=== PATIENT | female | born 1935 | race Caucasian/White ===

== ENCOUNTER 2019-11-09 14:36 | Inpatient (IN) | payer MEDICARE, MEDICAID ==
[~2019-11-09] VITALS: Ht 162.6 cm; Wt 63.5 kg
[~2019-11-09 14:36] MED LIST: BISOPROLOL-HCT1 EAC1 PO; CELEXA20 MG PO; COLACE100 MG PO; DESERYL100 MG PO; LISINOPRIL10 MG PO; LOPID600 MG PO; MULTIPLE VITAMI1 TA1 PO; NICODERM C1 PATCH .1 TRANSDERM; OXYBUTYNIN CHLOR5 MG PO; PLAVIX75 MG PO; PRILOSEC20 MG PO
[2019-11-09 15:27] LABS: EOSINOPHILS 5.1 % (0-7); HEMATOCRIT 36.4 % (36.0-48.0); HEMOGLOBIN 11.8 g/dL (12-16); IMMATURE GRANULOCYTES 0.3 % (0-5); LYMPHOCYTES 15.7 % (15-50); MCH 27.8 pg (26.0-34.0); MCHC 32.4 g/dL (31.0-37.0); MCV 85.6 fL (80.0-100.0); MEAN PLATELET VOLUME 9.6 fL (7.4-10.4); MONOCYTES 13.9 % (2-11); PLATELET COUNT 207 10x3/uL (130-400); RBC 4.25 10x6/uL (4.00-5.40); RDW 14.4 % (11.5-14.5)
[2019-11-09 15:41] LABS: CALC OSMOLALITY 272 mosm/kg (275-300); CALCIUM 8.5 mg/dL (8.5-10.1); CARBON DIOXIDE 22.2 mmol/L (21.0-32.0); CHLORIDE - SERUM 101 mmol/L (98-107); CREATININE - SERUM 2.8 mg/dL (0.6-1.3); GLUCOSE 98 mg/dL (74-106); POTASSIUM - SERUM 4.2 mmol/L (3.5-5.1); SODIUM 133 mmol/L (136-145); UREA NITROGEN 33 mg/dL (7-18); eGFR NON AFRICAN AMERICAN 17 mL/min (90-120)
[2019-11-09 15:51] LABS: APTT 27.4 SECONDS (22.8-39.4); PROTIME 13.2 SECONDS (11.6-15.0)
[2019-11-09 16:10] LABS: ALBUMIN 3.4 g/dL (3.4-5.0); ALKALINE PHOSPHATASE 74 U/L (30-120); ALT (SGPT) 23 U/L (10-68); BILIRUBIN - TOTAL 0.39 mg/dL (0.2-1.3); CKMB 1.7 U/L (0.0-3.6); CREATINE KINASE 57 UL (21-215); PROTEIN - SERUM 6.8 g/dL (6.4-8.2); THYROID STIMULATING HORMONE 2.43 uIU/mL (0.36-3.74); TROPONIN-I < 0.017 ng/mL (0.000-0.060)
--- NOTE | 2019-11-09 16:47 | NUR ---
URINE SAMPLE OBTAINED AND SENT TO LAB
[2019-11-09 17:31] VITALS: BP 157/59
[2019-11-09 17:40] LABS: BILIRUBIN NEGATIVE (NEGATIVE); KETONE NEGATIVE (NEGATIVE); NITRITE NEGATIVE (NEGATIVE); UROBILINOGEN NORMAL mg/dL (< 2)
[2019-11-09 17:41] LABS: BACTERIA FEW /HPF (NONE SEEN); EPITHELIAL CELLS 0-5 /hpf (0-5)
[2019-11-09 18:32] VITALS: BP 157/62
[2019-11-10] VITALS (8 sets, daily range): BP systolic 128–161; BP diastolic 44–69; BMI 24.0
[2019-11-10 06:36] LABS: BASOPHILS 1.2 % (0-2); EOSINOPHILS 6.6 % (0-7); HEMATOCRIT 33.7 % (36.0-48.0); HEMOGLOBIN 10.9 g/dL (12-16); IMMATURE GRANULOCYTES 0.2 % (0-5); LYMPHOCYTES 24.9 % (15-50); MCH 27.5 pg (26.0-34.0); MCHC 32.3 g/dL (31.0-37.0); MCV 84.9 fL (80.0-100.0); MEAN PLATELET VOLUME 10.2 fL (7.4-10.4); MONOCYTES 12.2 % (2-11); NEUTROPHILS 54.9 % (40-80); PLATELET COUNT 201 10x3/uL (130-400); RBC 3.97 10x6/uL (4.00-5.40); RDW 14.4 % (11.5-14.5)
[2019-11-10 06:49] LABS: WBC 4.3 10x3/uL (4.8-10.8)
[2019-11-10 06:51] LABS: ALBUMIN 2.8 g/dL (3.4-5.0); ANION GAP 13.1 mmol/L (8-16); BILIRUBIN - TOTAL 0.27 mg/dL (0.2-1.3); CALCIUM 7.6 mg/dL (8.5-10.1); CARBON DIOXIDE 20.4 mmol/L (21.0-32.0); PROTEIN - SERUM 5.9 g/dL (6.4-8.2)
[2019-11-10 07:07] LABS: CREATININE - SERUM 1.9 mg/dL (0.6-1.3); POTASSIUM - SERUM 3.5 mmol/L (3.5-5.1)
--- NOTE | 2019-11-10 07:37 | NUR ---
DR CELAYA IN ROOM SEEING PT. SHIFT REPORT RECIEVED. PT ASSISTED ON AND OFF BED JOHNSON. POSSE ALARM ON. CL IN REACH. WCTM
--- NOTE | 2019-11-10 10:36 | NUR ---
MRA OF BRAIN ORDERED ON PATIENT. IN CHECKING THE NOTES DR CELAYA HAD MRI BRAIN, I CALLED HIS OFFICE AND GOT CLARIFICATION FROM IDALIA HIS NURSE. SHE INFORMED ME THAT HE WANTED A MRI BRAIN NOT A MRA. MRA WAS CANCELLED AND A MRI BRAIN WITHOUT WAS ORDERED.
--- NOTE | 2019-11-10 12:33 | NUR ---
PT BACK FROM MRI. CL IN REACH. NO FURTHER NEEDS AT THIS TIME. POSSE ALARM ON. WCTM
--- NOTE | 2019-11-10 15:15 | NUR ---
PT EASILY AWAKENED. NO NEEDS AT THIS TIME. MEDS GIVEN PER EMAR. CL IN REACH. BED ALARM ON. WCTM
--- NOTE | 2019-11-11 02:38 | NUR ---
RESTING IN BED WITH NO NEEDS AT THIS TIME. ALERT WITH SOME CONFUSION NOTED, IV TO LEFT HAND INTACT AND PATEN WITH NS PER ORDERS. LEFT HAND WEEK TELEMETRY IN PLACE BED ALARM IN PLACE AMD WORKING. CALL LIGHT AND WATER IN REACH. NO S/S OF DISTRESS NO NEEDS AT THIS TIME.
[2019-11-11 04:00] VITALS: BP 151/54
[2019-11-11 06:22] LABS: ANION GAP 14.3 mmol/L (8-16); CALCIUM 8.3 mg/dL (8.5-10.1); CARBON DIOXIDE 20.6 mmol/L (21.0-32.0); CREATININE - SERUM 1.7 mg/dL (0.6-1.3); POTASSIUM - SERUM 3.9 mmol/L (3.5-5.1)
[2019-11-11 08:51] VITALS: BP 180/57
[2019-11-11 11:59] VITALS: BP 135/56
[2019-11-11 12:46] VITALS: Ht 162.6 cm; Wt 63.5 kg
--- NOTE | 2019-11-11 15:24 | NUR ---
SPOKE TO PT DAUGHTER IN REGARDS TO PT PLAN OF CARE, DAUGHTER SATED SHE WOULD LIKE TO SPEAK WITH DOCTOR CELAYA IN [facility] TO MRI AND XRAY, DID NOT SEE DR CELAYA THIS AFTERNOON ,CALLED OFFICE AND ASKED DR CELAYA TO CALL PATIENT DAUGHTER. NO OTHER NEEDS AT THIS TIME. CONTINUE WITH PLAN OF CARE
[2019-11-11 16:23] VITALS: BP 158/53
[2019-11-11 20:00] VITALS: BP 150/42
[2019-11-12] VITALS: BP 187/82
--- NOTE | 2019-11-12 03:30 | NUR ---
ASSESSED AT THE BEGINNING OF THE SHIFT. PT IS ORIENTED AND ABLE TO VERBALIZE NEEDS. WE ARE ASSISTING HER UP TO THE BATHROOM TO VOID WITH ONE PERSON AND SHE DOES WELL. HER TELEMETRY SHOW SB IN THE HIGH 50'S. THERE WAS NO TROUBLE SWALLOWING HER MEDS AT HS. SHE ONLY HAS ROOM AIR AND IS DOING WELL WITH IT.
[2019-11-12 06:18] LABS: ANION GAP 18.4 mmol/L (8-16); CALCIUM 9.4 mg/dL (8.5-10.1); CARBON DIOXIDE 20.6 mmol/L (21.0-32.0); CREATININE - SERUM 1.5 mg/dL (0.6-1.3)
--- NOTE | 2019-11-12 07:15 | NUR ---
RECEIVED BEDSIDE REPORT. PT LAYING IN BED, DISORITATED TO PLACE, TIME AND SITUATION. DENIES PAIN. PIV IN RIGHT FOREARM, PATENT AND INFUSING, NO REDNESS OR SWELLING. TELEMETRY IN PLACE, 62 SR. BRUISES ON BILAT UPPER ARMS. PT ABLE TO AMBULATE WITH ONE PERSON ASSIST. EDUCATED PT ON CL AND NEEDS, VERBALIZED UNDERSTANDING. BED LOW, CL IN REACH. WILL CONTINUE TO MONITOR.
--- NOTE | 2019-11-12 09:45 | NUR ---
ASSISTED PT WITH SHOWER. FULL LINEN CHANGE. PT TOLERATED WELL. BED LOW, CL IN REACH.
[2019-11-12 12:39] VITALS: BP 163/68
--- NOTE | 2019-11-12 12:45 | NUR ---
ASSISTED PT TO BR, FULL LINEN AND GOWN CHANGE. APPLIED VOLTAREN GEL TO R KNEE. PT TOLERATED WELL, BED LOW, CL IN REACH.
--- NOTE | 2019-11-12 12:58 | NUR ---
OT ACUTE EVALUATION: UPON EVALUATION, PT WAS VERY LETHARGIC.. DIFFICULT TO AROUSE. PT CONFUSED AND ORIENTED TO SELF AND PLACE ONLY. AFTER ASSISTING PT TO EOB WITH MIN ASSIST, SHE BECAME SLIGHTLY MORE ALERT. REQUIRED SEVERAL CUES TO OPEN HER EYES. PT ABLE TO MOVE ALL EXTREMETIES WITH MILD WEAKNESS IN L HAND. PT ABLE TO AMB IN ROOM AND INTO HALLWAY WITH GAIT BELT, MIN ASSIST FOR BALANCE, AND USE OF IV POLE FOR UE SUPPORT. PT ABLE TO AMB APPROX 80 FT WITHOUT REST BREAKS. NO SOB NOTED BUT VERY FATIGUED UPON RETURN TO ROOM. PT ABLE TO PERFORM SIMPLE GROOMING TASKS WITH SET UP; MIN ASSIST FOR TOILETING; MIN ASSIST WITH VERBAL CUES FOR DRESSING. INTERMITTENT SLURRED SPEECH DURING THERAPY, HOWEVER, MAY BE RELATED TO SEVERE LETHARGY. UPON ASSISTING PT BACK TO BED, SHE WENT TO SLEEP IMMEDIATELY. PT REPORTED THAT SHE LIVED WITH DTRS, HOWEVER, UNSURE OF ACCURACY OF THIS INFO. PT UNABLE TO TELL THERAPIST IF SHE REUQIRED 02 OR ADAPT DEVICE AT HOME, HOWEVER, IM ASSUMING THAT SHE WAS INDEP WITH AMBULATION, SHE WAS ABLE TO AMB WITH PROJECT MANAGEMENT ENGINEER OR USE OF IV POLE FOR ASSIST. RECOMMEND IP REHAB PRIOR TO DC HOME THANK YOU FOR REFERAL, JOHNNA REAGAN, OTR/L [id number]
--- NOTE | 2019-11-12 13:15 | NUR ---
ASSISTED PT TO CHAIR, ASSISTED WITH LUNCH TRAY. CHANGED GOWN POST MEAL. ASSISTED PT BACK TO BED. BED LOW, ALARM ON. WILL CONTINUE TO MONITOR.
[2019-11-12 16:53] VITALS: BP 160/64
--- NOTE | 2019-11-12 17:30 | NUR ---
OT NOTE: PT REQUIRED MIN A WITH BED MOBILITY TASKS. PT REQUIRED SET UP WITH FACE AND HAND HYGIENE. [id number] THANK YOU,BRIDGER MORGAN
[2019-11-12 20:00] VITALS: BP 140/86
[2019-11-13 04:00] VITALS: BP 130/82
--- NOTE | 2019-11-13 07:15 | NUR ---
RECEIVED BEDSIDE REPORT. PT LAYING IN BED, EVEN RESPIRATIONS, EYES CLOSED. PIV IN R FOREARM, PATENT AND INFUSING, NO REDNESS OR SWELLING. BED LOW, RAILS X2. CL IN REACH, WILL CONTINUE TO MONITOR.
[2019-11-13 07:44] VITALS: BP 133/70
--- NOTE | 2019-11-13 09:00 | NUR ---
ASSISTED PT WITH BREAKFAST TRAY. GAVE MEDS WITH APPLESAUCE. PT ABLE TO AMBULATE TO BR WITH ONE PERSON ASSIST. PT WEARING DEPENDS. BED LOW, RAILS X2. CL IN REACH.
--- NOTE | 2019-11-13 11:30 | NUR ---
ASSISTED PT TO BR, CHANGED GOWN AND FULL BED CHANGE. PT TOLERATED WELL. ASSISTED PT TO CHAIR FOR LUNCH. CHAIR ALARM ON. CL IN REACH, WILL CONTINUE TO MONITOR.
[2019-11-13 11:43] VITALS: BP 141/90
--- NOTE | 2019-11-13 12:30 | NUR ---
DAUGHTER AT BEDSIDE, ASSISTED PT WITH MEAL. DAUGHTER ASKED ABOUT PENDING PLACEMENT TO RAO URIAS, EDUCATED PT THAT CM WOULD BE ABLE TO ANSWER QUESTIONS ON FRIDAY ABOUT D/C AND PLACEMENT, VERBALIZED UNDERSTANDING. PT SITTING IN CHAIR, ALARM ON. CL IN REACH.
--- NOTE | 2019-11-13 14:00 | NUR ---
D/C FLUIDS PER ORDER. PIV IN RIGHT FOREARM, S/L AND PATENT. BED LOW, CL IN REACH.
[2019-11-13 15:56] VITALS: BP 130/80
--- NOTE | 2019-11-13 18:10 | NUR ---
DECK LID FITTER ASSISTED PT WITH DINNER TRAY, PT ATE 75%, TOLERATED WELL. BED LOW, RAILS X2. CL IN REACH.
--- NOTE | 2019-11-13 20:20 | NUR ---
LYING IN BED WATCHING TV. ALERT AND ORIENTED X3, CONFUSED TO SITUATION. RESP EVEN AND NONLABORED. TELEMETRY SHOWS SR WITH RATE OF 69. SALINE LOCK NOTED TO RT FOREARM. DENIES PAIN. SR ELEVATED X2. CL IN REACH. TANYA ALARM ON FOR PT SAFETY.
[2019-11-13 20:32] VITALS: BP 172/66
--- NOTE | 2019-11-14 00:10 | NUR ---
SPECIAL INSPECTOR REPORTS PT UNCOOPERATIVE DURING ATTEMPT TO GET V/S AND REFUSED.
--- NOTE | 2019-11-14 01:37 | NUR ---
RESTING ON LT SIDE IN BED WITH EYES CLOSED. RESP EVEN AND NONLABORED. NO DISTRESS. SR ELEVATED X2. CL IN REACH. TANYA ON
--- NOTE | 2019-11-14 04:24 | NUR ---
CHECKED FOR INCONTINENCE. ADULT BRIEF IS CLEAN AND DRY. NO DISTRESS. CL IN REACH. TANYA ON.
[2019-11-14 05:57] VITALS: BP 159/69
--- NOTE | 2019-11-14 07:15 | NUR ---
RESTING IN BED WITH EYES CLOSED, BREATHING EVEN AND NONLABORED WITH NO S/S OF DISTRESS. IV LOCATED TO RIGHT FOREARM CURRENTLY SL. WILL CONT TO MONITOR.
[2019-11-14 08:16] VITALS: BP 172/84
--- NOTE | 2019-11-14 12:20 | NUR ---
PTS BP 186/88, CALLED TO ASK ABOUT PRN BP MEDS, WAS INSTRUCTED TO UP LISINOPRIL TO 20MG PO PER DAY AND ADD 0.1MG CLONIDINE PRN Q6 FOR SYSTOLIC >160. WILL CONT TO MONITOR.
[2019-11-14 12:23] VITALS: BP 186/88
[2019-11-14 16:40] VITALS: BP 153/81
--- NOTE | 2019-11-14 19:40 | NUR ---
SITTING UP IN CHAIR. ASSISTED BACK TO BED. GAIT SLIGHTLY UNSTEADY. ALERT AND ORIENTED TO SELF, PLACE AND TIME. CONFUSED TO SITUATION. SCDS OFF. INCONT OF B/B AT TIMES. ADULT BRIEF IN USE. RESP EVEN AND NONLABORED. SALINE LOCK NOTED TO RT FOREARM. TELEMETRY SHOWS SR WITH RATE OF 79. SR ELEVATED X2. CL IN REACH. TANYA ALARM ON FOR PT SAFETY.
[2019-11-14 21:16] VITALS: BP 154/65
--- NOTE | 2019-11-14 22:00 | NUR ---
GOT OOB WITHOUT ASSISTANCE CAUSING TANYA ALARM TO ACTIVATE. WAS INCONT OF BOWELS IN ADULT BRIEF. PERICARE PERFORMED AND NEW BRIEF APPLIED. ASSISTED BACK TO BED. CL IN REACH. TANYA ALARM ON.
--- NOTE | 2019-11-15 01:00 | NUR ---
HAS RESTED WELL SO FAR THIS SHIFT. NO DISTRESS. LYING ON LT SIDE IN BED WITH EYES CLOSED. RESP NONLABORED. SR ELEVATED X2. CL IN REACH. TANYA ALARM ON.
[2019-11-15 01:27] VITALS: BP 158/66
[2019-11-15 05:44] VITALS: BP 135/62
[2019-11-15 07:46] VITALS: BP 148/68
[2019-11-15 08:11] LABS: ANION GAP 10.3 mmol/L (8-16); CARBON DIOXIDE 24.5 mmol/L (21.0-32.0); CREATININE - SERUM 1.1 mg/dL (0.6-1.3); POTASSIUM - SERUM 3.8 mmol/L (3.5-5.1)
--- NOTE | 2019-11-15 09:26 | MORECARE ---
CASE MANAGEMENT DISCHARGE SUMMARY PATIENT: MANNIE MILTON UNIT: [id number] ADM DATE: 11/10/19 AGE: 84 : 35 SEX: F ROOM/BED: D.2230 AUTHOR: TED BRUNER PHYSICIAN: REFERRING PHYSICIAN: MYRA CELAYA MD DATE OF SERVICE: 11/15/19 Discharge Plan Patient Name: MANNIE MILTON [facility] [facility] 1935 Planned Disposition: Anticipated Discharge Date: Discharge Date: Expected LOS: Initial Reviewer: [id number] Initial Review Date: 11/15/2019 Generated: 11/15/19 10:25 am Comments DCP- Discharge Planning Updated by [email or web address]: Graciela Caldera on 11/15/19 8:[address] Patient Name: MANNIE MILTON Admission Status: ER Accout number: [id number] Admission Date: 11-10-2019 : 1935 Admission Diagnosis:WEAKNESS Attending: MYRA CELAYA Current LOS: 5 Anticipated DC Date: Planned Disposition: Primary Insurance: [facility] [employer] Discharge Planning Comments: FAXED UPDATED CLINICALS TO [facility], THEY ARE SUBMITTING FOR AUTH TODAY. WAITING CALL BACK. SUSAN AND IMM SIGNED. Profiler Operator: Graciela Caldera DCP- Discharge Planning Updated by [id number]: Graciela Caldera on 11/12/19 9:[address] Patient Name: MANNIE MILTON Admission Status: ER Accout number: [id number] Admission Date: 11-10-2019 : 1935 Admission Diagnosis:WEAKNESS Attending: MYRA CELAYA Current LOS: 2 Anticipated DC Date: Planned Disposition: Primary Insurance: [facility] [employer] SOLUT[employer] Discharge Planning Comments: FAXED REFERRAL TO [facility]. I WILL FAX OT EVAL WHEN DONE. CM TO FOLLOW AND ASSIST NEEDED. Profiler Operator: Graciela Caldera DCPIA - Discharge Planning Initial Assessment Updated by [email or web address]: Graciela Caldera on 11/15/19 9:09 am * Is the patient Alert and Oriented? Yes * Other Environment STATES LIVES AT A [facility] , CAN'T THINK OF NAME. * ADLs Independent * Other Equipment CANE , WALKER * Additional services required to return to the preadmission environment? Yes * Can the patient safely return to the preadmission environment? Yes * Has this patient been hospitalized within the prior 30 days at any hospital? No External Providers External Provider: [facility] Contact Date: Service Request Date: Service Type: Resolution: Reviewer: Comments: Coverage Notice Reviewer: [id number] Caldera Notice Issued Date-Time: 11/15/2019 9:06 Notice Type: IM Discharge Notice Notice Delivered To: Patient Relationship to Patient: Software Support Specialist Name: Delivery Method: HAND - Hand Delivered Saira Days: Prior Verbal Notification: Recipient Understood Notice: Yes Recipient Signature: Yes Med Rec Note Co-signed by Attending: Coverage Notice Comment: Reviewer: [id number] Beckie Caldera Notice Issued Date-Time: 11/15/2019 9:06 Notice Type: Patient Choice Letter Notice Delivered To: Patient Relationship to Patient: Software Support Specialist Name: Delivery Method: HAND - Hand Delivered Saira Days: Prior Verbal Notification: Recipient Understood Notice: Yes Recipient Signature: Yes Med Rec Note Co-signed by Attending: Coverage Notice Comment: [facility] Patient Name: MANNIE MILTON Page [phone] at 0926 All edits/amendments must be made on the electronic document DICTATION DATE: 11/15/19924 BUTCHER FISH: CLEMENCIA 11/15/19924 RPT#: [id number] DC DATE: STATUS: ADM IN [facility] [address] [place] [address] END OF REPORT
[2019-11-15 12:03] VITALS: BP 165/73
--- NOTE | 2019-11-15 16:25 | MORECARE ---
CASE MANAGEMENT DISCHARGE SUMMARY PATIENT: MANNIE MILTON UNIT: [id number] ADM DATE: 11/10/19 AGE: 84 : 35 SEX: F ROOM/BED: D.2230 AUTHOR: TED BRUNER PHYSICIAN: REFERRING PHYSICIAN: MYRA CELAYA MD DATE OF SERVICE: 11/15/19 Discharge Plan Patient Name: MANNIE MILTON [facility] [facility] 1935 Planned Disposition: Anticipated Discharge Date: Discharge Date: Expected LOS: Initial Reviewer: [id number] Initial Review Date: 11/15/2019 Generated: 11/15/19 5:25 pm Comments DCP- Discharge Planning Updated by [email or web address]: Graciela Caldera on 11/15/19 3:[address] Patient Name: MANNIE MILTON Admission Status: ER Accout number: [id number] Admission Date: 11-10-2019 : 1935 Admission Diagnosis:WEAKNESS Attending: MYRA CELAYA Current LOS: 5 Anticipated DC Date: Planned Disposition: Primary Insurance: [facility] MED[facility] SOLUTIONS Discharge Planning Comments: FAXED UPDATED CLINICALS TO [facility], THEY ARE SUBMITTING FOR AUTH TODAY. WAITING CALL BACK. SUSAN AND IMM SIGNED. Nursing Surgical Services Director: Graciela Caldera Appended by Graciela Caldera on 11/15/2019 16:23 CDT: TRIED CALLING DAUGHTER TWICE, RECEIVED VOICEMAIL, LEFT A MESSAGE. DCP- Discharge Planning Updated by [id number]: Graciela Caldera on 11/12/19 9:[address] Patient Name: MANNIE MILTON Admission Status: ER Accout number: [id number] Admission Date: 11-10-2019 : 1935 Admission Diagnosis:WEAKNESS Attending: MYRA CELAYA Current LOS: 2 Anticipated DC Date: Planned Disposition: Primary Insurance: [facility] MEDIC[facility] SOLUTIONS Discharge Planning Comments: FAXED REFERRAL TO [facility]. I WILL FAX OT EVAL WHEN DONE. CM TO FOLLOW AND ASSIST NEEDED. Nursing Surgical Services Director: Graciela Caldera DCPIA - Discharge Planning Initial Assessment Updated by [id number]: Graciela Caldera on 11/15/19 9:09 am * Is the patient Alert and Oriented? Yes * Other Environment STATES LIVES AT A RESIDENTIAL , CAN'T THINK OF NAME. * ADLs Independent * Other Equipment CANE , WALKER * Additional services required to return to the preadmission environment? Yes * Can the patient safely return to the preadmission environment? Yes * Has this patient been hospitalized within the prior 30 days at any hospital? No Coverage Notice Reviewer: [email or web address] Beckie Caldera Notice Issued Date-Time: 11/15/2019 9:06 Notice Type: IM Discharge Notice Notice Delivered To: Patient Relationship to Patient: Chronometer Repairer Name: Delivery Method: HAND - Hand Delivered Saira Days: Prior Verbal Notification: Recipient Understood Notice: Yes Recipient Signature: Yes Med Rec Note Co-signed by Attending: Coverage Notice Comment: Reviewer: [id number] Beckie Caldera Notice Issued Date-Time: 11/15/2019 9:06 Notice Type: Patient Choice Letter Notice Delivered To: Patient Relationship to Patient: Chronometer Repairer Name: Delivery Method: HAND - Hand Delivered Saira Days: Prior Verbal Notification: Recipient Understood Notice: Yes Recipient Signature: Yes Med Rec Note Co-signed by Attending: Coverage Notice Comment: [facility] Last DP export: 11/15/19 8:26 a Patient Name: MANNIE MILTON Page [phone] at 1625 All edits/amendments must be made on the electronic document DICTATION DATE: 11/15/191624 FOOTWEAR MACHINERY INSTRUCTOR: CLEMENCIA 11/15/191624 RPT#: [id number] DC DATE: STATUS: ADM IN [facility] [address] [place] [address] END OF REPORT
[2019-11-15 16:41] VITALS: BP 149/66
--- NOTE | 2019-11-15 18:45 | NUR ---
PATIENT IN BED WITH IV INTACT. NO COMPLAINTS OR SIGNS OF DISTRESS. VS HAVE BEEN STABLE SINCE CAME BACK FROM SURGERY. PATIENT RESTING WITH NO PROBLEMS. BSCDS ON AND WORKING. CALL LIGHT WITHINR EACH.
--- NOTE | 2019-11-15 19:37 | NUR ---
Alert and orented able to voice needs and wants to staff. up with assist x 1 staff. posie alarm in place and on. iv to right forearm. scd's in place. no needs at this time.
[2019-11-15 20:00] VITALS: BP 165/76
[2019-11-16] VITALS: BP 133/70
[2019-11-16 04:00] VITALS: BP 147/64
--- NOTE | 2019-11-16 07:51 | NUR ---
PATIENT ASLEEP IN BED. AWAKENS TO VOICE. DENIES NEEDS AT THIS TIME. BED LOW POSITION, CALL LIGHT IN REACH. WILL CONTINUE TO MONITOR.
[2019-11-16 08:56] VITALS: BP 171/73
[2019-11-16 12:20] VITALS: BP 142/79
--- NOTE | 2019-11-16 15:52 | MORECARE ---
CASE MANAGEMENT DISCHARGE SUMMARY PATIENT: MANNIE MILTON UNIT: [id number] ADM DATE: 11/10/19 AGE: 84 : 35 SEX: F ROOM/BED: D.2230 AUTHOR: TED BRUNER PHYSICIAN: REFERRING PHYSICIAN: MYRA CELAYA MD DATE OF SERVICE: 11/16/19 Discharge Plan Patient Name: MANNIE MILTON [facility] [facility] 1935 Planned Disposition: Anticipated Discharge Date: Discharge Date: Expected LOS: Initial Reviewer: [id number] Initial Review Date: 11/15/2019 Generated: 11/16/19 4:51 pm Comments DCP- Discharge Planning Updated by [email or web address]: Graciela Caldera on 11/16/19 2:[address] Patient Name: MANNIE MITLON Admission Status: ER Accout number: [id number] Admission Date: 11-10-2019 : 1935 Admission Diagnosis:WEAKNESS Attending: MYRA CELAYA Current LOS: 6 Anticipated DC Date: Planned Disposition: Primary Insurance: [facility] [employer] Discharge Planning Comments: RECEIVED CALL FROM ANNITA AT [facility] AND INSURANCE HAS DENIED [facility]. I WILL CONTACT DAUGHTER TO SEE WHAT THEY WOULD LIKE TO DO. Yard Jockey: Graciela Caldera DCP- Discharge Planning Updated by [id number]: Graciela Caldera on 11/15/19 3:[address] Patient Name: MANNIE MILTON Admission Status: ER Accout number: [id number] Admission Date: 11-10-2019 : 1935 Admission Diagnosis:WEAKNESS Attending: MYRA CELAYA Current LOS: 5 Anticipated DC Date: Planned Disposition: Primary Insurance: [facility] [employer] Discharge Planning Comments: FAXED UPDATED CLINICALS TO [facility], THEY ARE SUBMITTING FOR AUTH TODAY. WAITING CALL BACK. SUSAN AND IMM SIGNED. Yard Jockey: Graciela Caldera Appended by Graciela Caldera on 11/15/2019 16:23 CDT: TRIED CALLING DAUGHTER TWICE, RECEIVED VOICEMAIL, LEFT A MESSAGE. DCP- Discharge Planning Updated by [id number]: Graciela Caldera on 11/12/19 9:[address] Patient Name: MANNIE MILTON Admission Status: ER Accout number: [id number] Admission Date: 11-10-2019 : 1935 Admission Diagnosis:WEAKNESS Attending: MYRA CELAYA Current LOS: 2 Anticipated DC Date: Planned Disposition: Primary Insurance: [facility] [employer] Discharge Planning Comments: FAXED REFERRAL TO [facility]. I WILL FAX OT EVAL WHEN DONE. CM TO FOLLOW AND ASSIST NEEDED. Yard Jockey: Graciela Caldera DCPIA - Discharge Planning Initial Assessment Updated by [email or web address]: Graciela Caldera on 11/15/19 9:09 am * Is the patient Alert and Oriented? Yes * Other Environment STATES LIVES AT A [place] , CAN'T THINK OF NAME. * ADLs Independent * Other Equipment CANE , WALKER * Additional services required to return to the preadmission environment? Yes * Can the patient safely return to the preadmission environment? Yes * Has this patient been hospitalized within the prior 30 days at any hospital? No Coverage Notice Reviewer: [id number] Beckie Caldera Notice Issued Date-Time: 11/15/2019 9:06 Notice Type: IM Discharge Notice Notice Delivered To: Patient Relationship to Patient: Jacquard Card Cutter Name: Delivery Method: HAND - Hand Delivered Saira Days: Prior Verbal Notification: Recipient Understood Notice: Yes Recipient Signature: Yes Med Rec Note Co-signed by Attending: Coverage Notice Comment: Reviewer: [id number] Beckie Caldera Notice Issued Date-Time: 11/15/2019 9:06 Notice Type: Patient Choice Letter Notice Delivered To: Patient Relationship to Patient: Jacquard Card Cutter Name: Delivery Method: HAND - Hand Delivered Saira Days: Prior Verbal Notification: Recipient Understood Notice: Yes Recipient Signature: Yes Med Rec Note Co-signed by Attending: Coverage Notice Comment: [facility] Last DP export: 11/15/19 3:25 p Patient Name: MANNIE MILTON Page [phone] at 1552 All edits/amendments must be made on the electronic document DICTATION DATE: 11/16/19 155 SUPERVISOR NUTRITIONAL YEAST: CLEMENCIA 11/16/19 155 RPT#: [id number] DC DATE: STATUS: ADM IN [facility] [address] [place] [address] END OF REPORT
[2019-11-16 18:08] VITALS: BP 134/64
--- NOTE | 2019-11-16 19:50 | NUR ---
ALERT WITH CONFUSION NOTED AT TIMES. ABLE TO VOICE NEEDS AND WANTS TO STAFF. IV IN PLACE AND PATEN TO RIGHT FOREARM. ON ROOM AIR SCD' IN ROOM REFUSED AT THIS TIME, STATED SHE WANTED TO LEAVE THEM OFF FOR NOW. CALL LIGHT AND WATER IN REACH. NO NEEDS OR S/S OD DISTRESS NOTED.
[2019-11-16 20:00] VITALS: BP 150/66
[2019-11-17] VITALS: BP 129/72
[2019-11-17 04:00] VITALS: BP 123/60
--- NOTE | 2019-11-17 08:50 | NUR ---
ASSESSMENT PER FLOW SHEET. PATIENT IS WITHOUT DISTRESS. FALL PREVENTION IN PLACE WITH BED ALARM
[2019-11-17 09:26] VITALS: BP 145/90
--- NOTE | 2019-11-17 14:00 | MORECARE ---
CASE MANAGEMENT DISCHARGE SUMMARY PATIENT: MANNIE MILTON UNIT: [id number] ADM DATE: 11/10/19 AGE: 84 : 35 SEX: F ROOM/BED: D.2230 AUTHOR: TED BRUNER PHYSICIAN: REFERRING PHYSICIAN: MYRA CELAYA MD DATE OF SERVICE: 11/17/19 Discharge Plan Patient Name: MANNIE MILTON [facility] [facility] 1935 Planned Disposition: Anticipated Discharge Date: Discharge Date: Expected LOS: Initial Reviewer: [id number] Initial Review Date: 11/15/2019 Generated: 11/17/19 3:00 pm Comments DCP- Discharge Planning Updated by [id number]: Graciela Caldera on 11/17/19 12:[address] Patient Name: MANNIE MILTON Admission Status: ER Accout number: [id number] Admission Date: 11-10-2019 : 1935 Admission Diagnosis:WEAKNESS Attending: MYRA CELAYA Current LOS: 7 Anticipated DC Date: Planned Disposition: Primary Insurance: [facility] MEDICARE SOLUTIONS Discharge Planning Comments: I SPOKE WITH GRACIELA MILTON, THE PATIENT'S DAUGHTER ON THE PHONE TODAY. I INFORMED HER OF THE DENIAL FOR IPR. WE DISCUSSED SNF REHABS, SHE IS THINKING IT OVER. SHE SAID MOST LIKELY IF DISCHARGE IS TOMORROW SHE HAS A RESIDENTIAL HOME SHE IS GOING TO TAKE HER TO. WAITING CALL BACK NOW WITH FINAL DECISION FROM THE DAUGHTER. Hot Stick Man: Graciela Caldera DCP- Discharge Planning Updated by [id number]: Graciela Caldera on 11/16/19 2:[address] Patient Name: MANNIE MILTON Admission Status: ER Accout number: [id number] Admission Date: 11-10-2019 : 1935 Admission Diagnosis:WEAKNESS Attending: MYRA CELAYA Current LOS: 6 Anticipated DC Date: Planned Disposition: Primary Insurance: [facility] MEDICARE SOLUTIONS Discharge Planning Comments: RECEIVED CALL FROM ANNITA AT [facility] AND INSURANCE HAS DENIED IPR. I WILL CONTACT DAUGHTER TO SEE WHAT THEY WOULD LIKE TO DO. Hot Stick Man: Graciela Caldera DCP- Discharge Planning Updated by [id number]: Graciela Caldera on 11/15/19 3:[address] Patient Name: MANNIE MILTON Admission Status: ER Accout number: [id number] Admission Date: 11-10-2019 : 1935 Admission Diagnosis:WEAKNESS Attending: MYRA CELAYA Current LOS: 5 Anticipated DC Date: Planned Disposition: Primary Insurance: [facility] MEDICARE SOLUTIONS Discharge Planning Comments: FAXED UPDATED CLINICALS TO [facility], THEY ARE SUBMITTING FOR AUTH TODAY. WAITING CALL BACK. SUSAN AND IMM SIGNED. Hot Stick Man: Graciela Caldera Appended by Graciela Caldera on 11/15/2019 16:23 CDT: TRIED CALLING DAUGHTER TWICE, RECEIVED VOICEMAIL, LEFT A MESSAGE. DCP- Discharge Planning Updated by [id number]: Graciela Caldera on 11/12/19 9:[address] Patient Name: MANNIE MILTON Admission Status: ER Accout number: [id number] Admission Date: 11-10-2019 : 1935 Admission Diagnosis:WEAKNESS Attending: MYRA CELAYA Current LOS: 2 Anticipated DC Date: Planned Disposition: Primary Insurance: [facility] MEDICARE SOLUTIONS Discharge Planning Comments: FAXED REFERRAL TO [facility]. I WILL FAX OT EVAL WHEN DONE. CM TO FOLLOW AND ASSIST NEEDED. Hot Stick Man: Graciela Caldera DCPIA - Discharge Planning Initial Assessment Updated by [id number]: Graciela Caldera on 11/15/19 9:09 am * Is the patient Alert and Oriented? Yes * Other Environment STATES LIVES AT A PRISON , CAN'T THINK OF NAME. * ADLs Independent * Other Equipment CANE , WALKER * Additional services required to return to the preadmission environment? Yes * Can the patient safely return to the preadmission environment? Yes * Has this patient been hospitalized within the prior 30 days at any hospital? No Coverage Notice Reviewer: [id number] Beckie Caldera Notice Issued Date-Time: 11/15/2019 9:06 Notice Type: IM Discharge Notice Notice Delivered To: Patient Relationship to Patient: Stogy Maker Name: Delivery Method: HAND - Hand Delivered Saira Days: Prior Verbal Notification: Recipient Understood Notice: Yes Recipient Signature: Yes Med Rec Note Co-signed by Attending: Coverage Notice Comment: Reviewer: [id number] Beckie Caldera Notice Issued Date-Time: 11/15/2019 9:06 Notice Type: Patient Choice Letter Notice Delivered To: Patient Relationship to Patient: Stogy Maker Name: Delivery Method: HAND - Hand Delivered Saira Days: Prior Verbal Notification: Recipient Understood Notice: Yes Recipient Signature: Yes Med Rec Note Co-signed by Attending: Coverage Notice Comment: [facility] Last DP export: 11/16/19 2:52 p Patient Name: MANNIE MILTON Page [id number] at 1400 All edits/amendments must be made on the electronic document DICTATION DATE: 11/17/19 1400 DIGITAL PHOTOGRAPHIC PRINTER: CLEMENCIA 11/17/19 1400 RPT#: [id number] DC DATE: STATUS: ADM IN [facility] [address] [place] [address] END OF REPORT
--- NOTE | 2019-11-17 14:47 | MORECARE ---
CASE MANAGEMENT DISCHARGE SUMMARY PATIENT: MANNIE MILTON UNIT: [id number] ADM DATE: 11/10/19 AGE: 84 : 35 SEX: F ROOM/BED: D.2230 AUTHOR: TED BRUNER PHYSICIAN: REFERRING PHYSICIAN: MYRA CELAYA MD DATE OF SERVICE: 11/17/19 Discharge Plan Patient Name: MANNIE MILTON [facility] [facility] 1935 Planned Disposition: Anticipated Discharge Date: Discharge Date: Expected LOS: Initial Reviewer: [id number] Initial Review Date: 11/15/2019 Generated: 11/17/19 3:46 pm Comments DCP- Discharge Planning Updated by [id number]: Graciela Caldera on 11/17/19 12:[address] Patient Name: MANNIE MILTON Admission Status: ER Accout number: [id number] Admission Date: 11-10-2019 : 1935 Admission Diagnosis:WEAKNESS Attending: MYRA CELAYA Current LOS: 7 Anticipated DC Date: Planned Disposition: Primary Insurance: [facility] MEDICARE SOLUTIONS Discharge Planning Comments: I SPOKE WITH GRACIELA MILTON, THE PATIENT'S DAUGHTER ON THE PHONE TODAY. I INFORMED HER OF THE DENIAL FOR IPR. WE DISCUSSED SNF REHABS, SHE IS THINKING IT OVER. SHE SAID MOST LIKELY IF DISCHARGE IS TOMORROW SHE HAS A RESIDENTIAL HOME SHE IS GOING TO TAKE HER TO. WAITING CALL BACK NOW WITH FINAL DECISION FROM THE DAUGHTER. Road Passenger Firer: Graciela Caldera DCP- Discharge Planning Updated by [id number]: Graciela Caldera on 11/16/19 2:[address] Patient Name: MANNIE MILTON Admission Status: ER Accout number: [id number] Admission Date: 11-10-2019 : 1935 Admission Diagnosis:WEAKNESS Attending: MYRA CELAYA Current LOS: 6 Anticipated DC Date: Planned Disposition: Primary Insurance: [facility] MEDICARE SOLUTIONS Discharge Planning Comments: RECEIVED CALL FROM ANNITA AT [facility] AND INSURANCE HAS DENIED IPR. I WILL CONTACT DAUGHTER TO SEE WHAT THEY WOULD LIKE TO DO. Road Passenger Firer: Graciela Caldera DCP- Discharge Planning Updated by [id number]: Graciela Caldera on 11/15/19 3:[address] Patient Name: MANNIE MILTON Admission Status: ER Accout number: [id number] Admission Date: 11-10-2019 : 1935 Admission Diagnosis:WEAKNESS Attending: MYRA CELAYA Current LOS: 5 Anticipated DC Date: Planned Disposition: Primary Insurance: [facility] MEDICARE SOLUTIONS Discharge Planning Comments: FAXED UPDATED CL[facility]ICALS TO [facility], THEY ARE SUBMITTING FOR AUTH TODAY. WAITING CALL BACK. SUSAN AND IMM SIGNED. Road Passenger Firer: Graciela Caldera Appended by Graciela Caldera on 11/15/2019 16:23 CDT: TRIED CALLING DAUGHTER TWICE, RECEIVED VOICEMAIL, LEFT A MESSAGE. DCP- Discharge Planning Updated by [id number]: Graciela Caldera on 11/12/19 9:[address] Patient Name: MANNIE MILTON Admission Status: ER Accout number: [id number] Admission Date: 11-10-2019 : 1935 Admission Diagnosis:WEAKNESS Attending: MYRA CELAYA Current LOS: 2 Anticipated DC Date: Planned Disposition: Primary Insurance: [facility] MEDICARE SOLUTIONS Discharge Planning Comments: FAXED REFERRAL TO [facility]. I WILL FAX OT EVAL WHEN DONE. CM TO FOLLOW AND ASSIST NEEDED. Road Passenger Firer: Graciela Caldera DCPIA - Discharge Planning Initial Assessment Updated by [email or web address]: Graciela Caldera on 11/15/19 9:09 am * Is the patient Alert and Oriented? Yes * Other Environment STATES LIVES AT A GROUP HOME , CAN'T THINK OF NAME. * ADLs Independent * Other Equipment CANE , WALKER * Additional services required to return to the preadmission environment? Yes * Can the patient safely return to the preadmission environment? Yes * Has this patient been hospitalized within the prior 30 days at any hospital? No External Providers External Provider: [facility] Next Contact Date: Service Request Date: Service Type: Resolution: Reviewer: Comments: Coverage Notice Reviewer: [id number] Beckie Caldera Notice Issued Date-Time: 11/15/2019 9:06 Notice Type: IM Discharge Notice Notice Delivered To: Patient Relationship to Patient: Gore Cutter Name: Delivery Method: HAND - Hand Delivered Saira Days: Prior Verbal Notification: Recipient Understood Notice: Yes Recipient Signature: Yes Med Rec Note Co-signed by Attending: Coverage Notice Comment: Reviewer: [id number] Caldera Notice Issued Date-Time: 11/15/2019 9:06 Notice Type: Patient Choice Letter Notice Delivered To: Patient Relationship to Patient: Gore Cutter Name: Delivery Method: HAND - Hand Delivered Saira Days: Prior Verbal Notification: Recipient Understood Notice: Yes Recipient Signature: Yes Med Rec Note Co-signed by Attending: Coverage Notice Comment: [facility] Reviewer: [id number] Beckie Caldera Notice Issued Date-Time: 11/17/2019 14:42 Notice Type: Patient Choice Letter Notice Delivered To: Relationship to Patient: Gore Cutter Name: DAUGHTER Delivery Method: PHONE - Phone Saira Days: Prior Verbal Notification: Yes Recipient Understood Notice: Recipient Signature: Med Rec Note Co-signed by Attending: Coverage Notice Comment: [facility] Last DP export: 11/17/19 1:00 p Patient Name: MANNIE MILTON Page [phone] at 1447 All edits/amendments must be made on the electronic document DICTATION DATE: 11/17/196 SERVICE DESK LEAD: CLEMENCIA 11/17/19 1446 RPT#: [id number] DC DATE: STATUS: ADM IN [facility] [address] [place] [address] END OF REPORT
--- NOTE | 2019-11-17 14:55 | MORECARE ---
CASE MANAGEMENT DISCHARGE SUMMARY PATIENT: MANNIE MILTON UNIT: [id number] ADM DATE: 11/10/19 AGE: 84 : 35 SEX: F ROOM/BED: D.2230 AUTHOR: TED BRUNER PHYSICIAN: REFERRING PHYSICIAN: MYRA CELAYA MD DATE OF SERVICE: 11/17/19 Discharge Plan Patient Name: MANNIE MILTON Facility: [facility]:[place] : 1935 Planned Disposition: Anticipated Discharge Date: Discharge Date: Expected LOS: Initial Reviewer: [id number] Initial Review Date: 11/15/2019 Generated: 11/17/19 3:54 pm Comments DCP- Discharge Planning Updated by [id number]: Graciela Caldera on 11/17/19 1:[address] Patient Name: MANNIE MILTON Admission Status: ER Accout number: [id number] Admission Date: 11-10-2019 : 1935 Admission Diagnosis:WEAKNESS Attending: MYRA CELAYA Current LOS: 7 Anticipated DC Date: Planned Disposition: Primary Insurance: [facility] MEDICARE SOLUTIONS Discharge Planning Comments: GRACIELA MILTON CALLED AND STATES SHE WOULD LIKE TO GET HER MOM INTO [place] FOR REHAB, I HAVE FAXED THE REFERRAL. WAITING CALL BACK FROM [facility] THEY WILL HAVE TO SUBMIT THIS ONE FOR AUTH. Top Frame Maker: Graciela Caldera DCP- Discharge Planning Updated by [id number]: Graciela Caldera on 11/17/19 12:[address] Patient Name: MANNIE MILTON Admission Status: ER Accout number: [id number] Admission Date: 11-10-2019 : 1935 Admission Diagnosis:WEAKNESS Attending: MYRA CELAYA Current LOS: 7 Anticipated DC Date: Planned Disposition: Primary Insurance: [facility] MEDICARE SOLUTIONS Discharge Planning Comments: I SPOKE WITH GRACIELA MILTON, THE PATIENT'S DAUGHTER ON THE PHONE TODAY. I INFORMED HER OF THE DENIAL FOR [facility]. WE DISCUSSED SNF REHABS, SHE IS THINKING IT OVER. SHE SAID MOST LIKELY IF DISCHARGE IS TOMORROW SHE HAS A RESIDENTIAL HOME SHE IS GOING TO TAKE HER TO. WAITING CALL BACK NOW WITH FINAL DECISION FROM THE DAUGHTER. Top Frame Maker: Graciela Caldera DCP- Discharge Planning Updated by [id number]: Graciela Caldera on 11/16/19 2:[address] Patient Name: MANNIE MILTON Admission Status: ER Accout number: [id number] Admission Date: 11-10-2019 : 1935 Admission Diagnosis:WEAKNESS Attending: MYRA CELAYA Current LOS: 6 Anticipated DC Date: Planned Disposition: Primary Insurance: [facility] MEDICARE SOLUTIONS Discharge Planning Comments: RECEIVED CALL FROM ANNITA AT [facility] AND INSURANCE HAS DENIED [facility]. I WILL CONTACT DAUGHTER TO SEE WHAT THEY WOULD LIKE TO DO. Top Frame Maker: Graciela Caldera DCP- Discharge Planning Updated by [id number]: Graciela Caldera on 11/15/19 3:[address] Patient Name: MANNIE MILTON Admission Status: ER Accout number: [id number] Admission Date: 11-10-2019 : 1935 Admission Diagnosis:WEAKNESS Attending: MYRA CELAYA Current LOS: 5 Anticipated DC Date: Planned Disposition: Primary Insurance: [facility] MEDICARE SOLUTIONS Discharge Planning Comments: FAXED UPDATED CLINICALS TO [facility], THEY ARE SUBMITTING FOR AUTH TODAY. WAITING CALL BACK. SUSAN AND IMM SIGNED. Top Frame Maker: Graciela Caldera Appended by Graciela Caldera on 11/15/2019 16:23 CDT: TRIED CALLING DAUGHTER TWICE, RECEIVED VOICEMAIL, LEFT A MESSAGE. DCP- Discharge Planning Updated by [id number]: Graciela Caldera on 11/12/19 9:[address] Patient Name: MANNIE MILTON Admission Status: ER Accout number: [id number] Admission Date: 11-10-2019 : 1935 Admission Diagnosis:WEAKNESS Attending: MYRA CELAYA Current LOS: 2 Anticipated DC Date: Planned Disposition: Primary Insurance: [facility] MEDICARE SOLUTIONS Discharge Planning Comments: FAXED REFERRAL TO [facility]. I WILL FAX OT EVAL WHEN DONE. CM TO FOLLOW AND ASSIST NEEDED. Top Frame Maker: Graciela Caldera DCPIA - Discharge Planning Initial Assessment Updated by [id number]: Graciela Caldera on 11/15/19 9:09 am * Is the patient Alert and Oriented? Yes * Other Environment STATES LIVES AT A RETIREMENT , CAN'T THINK OF NAME. * ADLs Independent * Other Equipment CANE , WALKER * Additional services required to return to the preadmission environment? Yes * Can the patient safely return to the preadmission environment? Yes * Has this patient been hospitalized within the prior 30 days at any hospital? No Coverage Notice Reviewer: [id number] Caldera Notice Issued Date-Time: 11/15/2019 9:06 Notice Type: IM Discharge Notice Notice Delivered To: Patient Relationship to Patient: Masonry Contractor Administrator Name: Delivery Method: HAND - Hand Delivered Saira Days: Prior Verbal Notification: Recipient Understood Notice: Yes Recipient Signature: Yes Med Rec Note Co-signed by Attending: Coverage Notice Comment: Reviewer: BARNEY Caldera Notice Issued Date-Time: 11/15/2019 9:06 Notice Type: Patient Choice Letter Notice Delivered To: Patient Relationship to Patient: Masonry Contractor Administrator Name: Delivery Method: HAND - Hand Delivered Saira Days: Prior Verbal Notification: Recipient Understood Notice: Yes Recipient Signature: Yes Med Rec Note Co-signed by Attending: Coverage Notice Comment: [facility] Reviewer: [id number] Caldera Notice Issued Date-Time: 11/17/2019 14:42 Notice Type: Patient Choice Letter Notice Delivered To: Relationship to Patient: Masonry Contractor Administrator Name: DAUGHTER Delivery Method: PHONE - Phone Saira Days: Prior Verbal Notification: Yes Recipient Understood Notice: Recipient Signature: Med Rec Note Co-signed by Attending: Coverage Notice Comment: [facility] Last DP export: 11/17/19 1:47 p Patient Name: MANNIE MILTON Page [id number] at 1455 All edits/amendments must be made on the electronic document DICTATION DATE: 11/17/191453 BURRER MACHINE: CLEMENCIA 11/17/19 1454 RPT#: [id number] DC DATE: STATUS: ADM IN [facility] [address] [place] [address] END OF REPORT
--- NOTE | 2019-11-17 15:33 | NUR ---
OT NOTE: PT COMPLETED SUPINE TO SIT WITH MIN A. PT COMPLETED EOB SITTING WITH SBA. PT COMPLETED FACE HYGIENE WITH CGA. PT REQUIRED VERBAL CUES FOR INCREASED TASK PARTICIPATION. PT REQUIRED MIN/MOD A FOR SIT TO SUPINE. [phone] THANK YOU,BRIDGER MORGAN
[2019-11-17 17:15] VITALS: BP 164/75
--- NOTE | 2019-11-17 18:55 | NUR ---
OT NOTE: PT WAS UP IN CHAIR. ASKED IF SHE WAS READY TO GO BACK TO BED AND SHE RESPONDED YES. SIT TO STAND WITH MIN ASSIST; SEVERAL STEPS TO BED WITH MIN ASSIST. INCONT OF URINE. PT ABLE TO TOLERATE SITTING ON EOB FOR GREATER THAN 10 MIN WHILE PERFORMING SPONGE BATH. PT DID NOT INITIATE ANY BATHING, BUT WAS ABLE TO PERFORM UPPER BODY WITH VERBAL CUES;; EXT ASSIST WITH LES AND PERINEAL AREA; MIN ASSIST TO ZOE GOWN; MAX ASSIST WITH SOCKS; ABLE TO AMB WITH MIN ASSIST AROUND TO OTHER SIDE OF BED TO ASSESS BALANCE AND ENDURANCE. BALANCE WAS FAIR..ENDURANCE WAS FAIR. LIMITED VERBALIZATION FROM PT TODAY. BACK TO BED WITH MIN ASSIST. JOHNNA REAGAN, OTR/L [phone]
[2019-11-17 20:00] VITALS: BP 170/93
[2019-11-18] VITALS: BP 109/57
--- NOTE | 2019-11-18 01:41 | NUR ---
PATIENT IS ALERT WITH CONFUSIN NOTED, IV TO RIGHT FORARM SAILE LOCKED. TELEMETRY IN PLACE. REMAINS ON ROOM AIR, UP WITH ASSIST WATER AND CALL LIGHT IN REACH CHECKED OFTEN FOR NEEDS AND SAFETY.
[2019-11-18 04:00] VITALS: BP 121/71
[2019-11-18 08:33] VITALS: BP 138/60
[2019-11-18 12:33] VITALS: BP 144/70
--- NOTE | 2019-11-18 14:27 | NUR ---
OT NOTE: BED MOB WITH MIN ASSIST; SIT TO STAND WITH MIN ASSIST; AMB TO BATHROOM WITH GAMING TABLE OPERATOR; CLOTHING MGMT WITH MIN ASSIST; HYGIENE WITH SET UP; SIMPLE GROOMING WITH SET UP; IN ROOM AMBULATION AROUND WITH GAMING TABLE OPERATOR. PT STILL QUITE LETHARGIC TODAY. JOHNNA REAGAN, OTR/L
--- NOTE | 2019-11-18 15:11 | NUR ---
SLEEPING WITHOUT SIGNS OF DISTRESS
--- NOTE | 2019-11-18 15:22 | NUR ---
OT NOTE: PT COMPLETED EOB HYGIENE TASKS WITH SETUP. PT COMPLETED BED TO TOILET ADL MOB WITH CGA. PT COMPLETED TOILET HYGIENE WITH SBA. PT REQUIRED MOD A WITH ZOE/FF BRIEFS. PT COMPLETED STANDING BALANCE WITH CGA. [phone] THANK YOU,BRIDGER MORGAN
[2019-11-18 17:26] VITALS: BP 148/79
[2019-11-18 20:00] VITALS: BP 167/72
--- NOTE | 2019-11-18 20:00 | NUR ---
PT LYING IN BED SLEEPING WITHOUT DISTRESS, DENIES NEEDS AT THIS TIME. CL IN REACH, WILL CTM
[2019-11-19 04:00] VITALS: BP 158/75
[2019-11-19 08:34] VITALS: BP 133/68
--- NOTE | 2019-11-19 10:02 | NUR ---
ASSESSMENT PER FLOW SHEET. PATIENT IS WITHOUT DISTRESS. CALL LIGHT IN REACH
--- NOTE | 2019-11-19 10:03 | NUR ---
REPORT TO [facility],SPOKE WITH JACQUES WHITE
--- NOTE | 2019-11-19 10:28 | MORECARE ---
CASE MANAGEMENT DISCHARGE SUMMARY PATIENT: MANNIE MILTON UNIT: [id number] ADM DATE: 11/10/19 AGE: 84 : 35 SEX: F ROOM/BED: D.2230 AUTHOR: TED BRUNER PHYSICIAN: REFERRING PHYSICIAN: MYRA CELAYA MD DATE OF SERVICE: 11/19/19 Discharge Plan Patient Name: MANNIE MILTON Facility: [facility]:[place] : 1935 Planned Disposition: Anticipated Discharge Date: Discharge Date: Expected LOS: Initial Reviewer: [id number] Initial Review Date: 11/15/2019 Generated: 11/19/19 11:27 am Comments DCP- Discharge Planning Updated by [id number]: Graciela Caldera on 11/19/19 9:[address] Patient Name: MANNIE MILTON Encounter No: [id number] : 1935 Primary Insurance: [facility] MEDICARE SOLUTIONS Anticipated DC Date: Planned Disposition: External Planned Provider: : DCP follow-up note: Patient and family in agreement with discharge plan. No changes to plan. DISCHARGE FAXED TO [facility]. RN TO CALL REPORT. FACILITY WILL SEND VAN TO MATH AND SCIENCE DIVISION CHAIR PATIENT AROUND 11AM TODAY. Case management will follow and assist as needed. Graciela Caldera DCP- Discharge Planning Updated by [id number]: Graciela Caldera on 11/17/19 1:[address] Patient Name: MANNIE MILTON Admission Status: ER Accout number: [id number] Admission Date: 11-10-2019 : 1935 Admission Diagnosis:WEAKNESS Attending: MYRA CELAYA Current LOS: 7 Anticipated DC Date: Planned Disposition: Primary Insurance: [employer] MEDICARE SOLUTIONS Discharge Planning Comments: GRACIELA MILTON CALLED AND STATES SHE WOULD LIKE TO GET HER MOM INTO [place] FOR REHAB, I HAVE FAXED THE REFERRAL. WAITING CALL BACK FROM [facility] THEY WILL HAVE TO SUBMIT THIS ONE FOR AUTH. Aluminum Pourer: Graciela Caldera DCP- Discharge Planning Updated by [id number]: Graciela Caldera on 11/17/19 12:[address] Patient Name: MANNIE MILTON Admission Status: ER Accout number: [id number] Admission Date: 11-10-2019 : 1935 Admission Diagnosis:WEAKNESS Attending: MYRA CELAYA Current LOS: 7 Anticipated DC Date: Planned Disposition: Primary Insurance: [facility] MED[employer] SOLUTIONS Discharge Planning Comments: I SPOKE WITH GRACIELA MILTON, THE PATIENT'S DAUGHTER ON THE PHONE TODAY. I INFORMED HER OF THE DENIAL FOR [facility]. WE DISCUSSED SNF REHABS, SHE IS THINKING IT OVER. SHE SAID MOST LIKELY IF DISCHARGE IS TOMORROW SHE HAS A RESIDENTIAL HOME SHE IS GOING TO TAKE HER TO. WAITING CALL BACK NOW WITH FINAL DECISION FROM THE DAUGHTER. Aluminum Pourer: Graciela Caldera DCP- Discharge Planning Updated by [email or web address]: Graciela Caldera on 11/16/19 2:[address] Patient Name: MANNIE MILTON Admission Status: ER Accout number: [id number] Admission Date: 11-10-2019 : 1935 Admission Diagnosis:WEAKNESS Attending: MYRA CELAYA Current LOS: 6 Anticipated DC Date: Planned Disposition: Primary Insurance: [facility] MED[employer] SOLUTIONS Discharge Planning Comments: RECEIVED CALL FROM ANNITA AT [facility] [place] AND INSURANCE HAS DENIED [facility]. I WILL CONTACT DAUGHTER TO SEE WHAT THEY WOULD LIKE TO DO. Aluminum Pourer: Graciela Caldera DCP- Discharge Planning Updated by [email or web address]: Graciela Caldera on 11/15/19 3:[address] Patient Name: MANNIE MILTON Admission Status: ER Accout number: [id number] Admission Date: 11-10-2019 : 1935 Admission Diagnosis:WEAKNESS Attending: MYRA CELAYA Current LOS: 5 Anticipated DC Date: Planned Disposition: Primary Insurance: [facility] MEDIC[employer] SOLUTIONS Discharge Planning Comments: FAXED UPDATED CLINICALS TO [facility], THEY ARE SUBMITTING FOR AUTH TODAY. WAITING CALL BACK. SUSAN AND IMM SIGNED. Aluminum Pourer: Graciela Caldera Appended by Graciela Caldera on 11/15/2019 16:23 CDT: TRIED CALLING DAUGHTER TWICE, RECEIVED VOICEMAIL, LEFT A MESSAGE. DCP- Discharge Planning Updated by [id number]: Graciela Caldear on 11/12/19 9:[address] Patient Name: MANNIE MILTON Admission Status: ER Accout number: [id number] Admission Date: 11-10-2019 : 1935 Admission Diagnosis:WEAKNESS Attending: MYRA CELAYA Current LOS: 2 Anticipated DC Date: Planned Disposition: Primary Insurance: [facility] MEDIC[employer] SOLUTIONS Discharge Planning Comments: FAXED REFERRAL TO [facility]. I WILL FAX OT EVAL WHEN DONE. CM TO FOLLOW AND ASSIST NEEDED. Aluminum Pourer: Graciela Caldera NYPIA - Discharge Planning Initial Assessment Updated by [id number]: Graciela Caldera on 11/15/19 9:09 am * Is the patient Alert and Oriented? Yes * Other Environment STATES LIVES AT A [facility] , CAN'T THINK OF NAME. * ADLs Independent * Other Equipment CANE , WALKER * Additional services required to return to the preadmission environment? Yes * Can the patient safely return to the preadmission environment? Yes * Has this patient been hospitalized within the prior 30 days at any hospital? No Coverage Notice Reviewer: [id number] Beckie Caldera Notice Issued Date-Time: 11/15/2019 9:06 Notice Type: IM Discharge Notice Notice Delivered To: Patient Relationship to Patient: Costume Specialist Name: Delivery Method: HAND - Hand Delivered Saira Days: Prior Verbal Notification: Recipient Understood Notice: Yes Recipient Signature: Yes Med Rec Note Co-signed by Attending: Coverage Notice Comment: Reviewer: [id number] Caldera Notice Issued Date-Time: 11/15/2019 9:06 Notice Type: Patient Choice Letter Notice Delivered To: Patient Relationship to Patient: Costume Specialist Name: Delivery Method: HAND - Hand Delivered Saira Days: Prior Verbal Notification: Recipient Understood Notice: Yes Recipient Signature: Yes Med Rec Note Co-signed by Attending: Coverage Notice Comment: [facility] Reviewer: [id number] Beckie Caldera Notice Issued Date-Time: 11/17/2019 14:42 Notice Type: Patient Choice Letter Notice Delivered To: Relationship to Patient: Costume Specialist Name: DAUGHTER Delivery Method: PHONE - Phone Saira Days: Prior Verbal Notification: Yes Recipient Understood Notice: Recipient Signature: Med Rec Note Co-signed by Attending: Coverage Notice Comment: [facility] Last DP export: 11/17/19 1:55 p Patient Name: MANNIE MILTON Page [id number] at 1028 All edits/amendments must be made on the electronic document DICTATION DATE: 11/19/19 1027 BANKRUPTCY LEGAL ASSISTANT: CLEMENCIA 11/19/19 1027 RPT#: [id number] DC DATE: STATUS: ADM IN [facility] [address] [place] [address] END OF REPORT
--- NOTE | 2019-11-19 10:50 | NUR ---
DISCHARGE INSTRUCTIONS, STATES UNDERSTANDING. IV DCD WITH CATH TIP INTACT. WAITING ON RIDE TO [facility].
--- NOTE | 2019-11-19 14:15 | NUR ---
RIDE HERE FOR TRANSPORT TO [facility]. PATIENT LEFT UNIT VIA WHEELCHAIR FOR TRANSPORT
--- NOTE | 2019-11-22 08:43 | MORECARE ---
CASE MANAGEMENT DISCHARGE SUMMARY PATIENT: MANNIE MILTON UNIT: [id number] ADM DATE: 11/10/19 AGE: 84 : 35 SEX: F ROOM/BED: D.2230 AUTHOR: TED BRUNER PHYSICIAN: REFERRING PHYSICIAN: MYRA CELAYA MD DATE OF SERVICE: 11/22/19 Discharge Plan Patient Name: MANNIE MILTON Facility: [facility]:[place] : 1935 Planned Disposition: Anticipated Discharge Date: Discharge Date: 11/19/2019 Expected LOS: Initial Reviewer: [id number] Initial Review Date: 11/15/2019 Generated: 11/22/19 9:43 am Comments DCP- Discharge Planning Updated by [id number]: Graciela Caldera on 11/19/19 9:[address] Patient Name: MANNIE MILTON Encounter No: [id number] : 1935 Primary Insurance: [facility] MEDICARE SOLUTIONS Anticipated DC Date: Planned Disposition: External Planned Provider: : DCP follow-up note: Patient and family in agreement with discharge plan. No changes to plan. DISCHARGE FAXED TO [facility]. RN TO CALL REPORT. FACILITY WILL SEND VAN TO HAND FABRIC CUTTER PATIENT AROUND 11AM TODAY. Case management will follow and assist as needed. Graciela Caldera DCP- Discharge Planning Updated by [email or web address]: Graciela Caldera on 11/17/19 1:[address] Patient Name: MANNIE MILTON Admission Status: ER Accout number: [id number] Admission Date: 11-10-2019 : 1935 Admission Diagnosis:WEAKNESS Attending: MYRA CELAYA Current LOS: 7 Anticipated DC Date: Planned Disposition: Primary Insurance: [facility] MEDICARE SOLUTIONS Discharge Planning Comments: GRACIELA MILTON CALLED AND STATES SHE WOULD LIKE TO GET HER MOM INTO [facility] FOR REHAB, I HAVE FAXED THE REFERRAL. WAITING CALL BACK FROM Rita [facility]ERIVE THEY WILL HAVE TO SUBMIT THIS ONE FOR AUTH. Vice President Of Sales: Graciela Caldera DCP- Discharge Planning Updated by [id number]: Graciela Caldera on 11/17/19 12:[address] Patient Name: MANNIE MILTON Admission Status: ER Accout number: [id number] Admission Date: 11-10-2019 : 1935 Admission Diagnosis:WEAKNESS Attending: MYRA CELAYA Current LOS: 7 Anticipated DC Date: Planned Disposition: Primary Insurance: [facility] MEDICARE SOLUTIONS Discharge Planning Comments: I SPOKE WITH GRACIELA MILTON, THE PATIENT'S DAUGHTER ON THE PHONE TODAY. I INFORMED HER OF THE DENIAL FOR [facility]. WE DISCUSSED SNF REHABS, SHE IS THINKING IT OVER. SHE SAID MOST LIKELY IF DISCHARGE IS TOMORROW SHE HAS A RESIDENTIAL HOME SHE IS GOING TO TAKE HER TO. WAITING CALL BACK NOW WITH FINAL DECISION FROM THE DAUGHTER. Vice President Of Sales: Graciela Caldera DCP- Discharge Planning Updated by [email or web address]: Graciela Caldera on 11/16/19 2:[address] Patient Name: MANNIE MILTON Admission Status: ER Accout number: [id number] Admission Date: 11-10-2019 : 1935 Admission Diagnosis:WEAKNESS Attending: MYRA CELAYA Current LOS: 6 Anticipated DC Date: Planned Disposition: Primary Insurance: [facility] MEDICARE SOLUTIONS Discharge Planning Comments: RECEIVED CALL FROM ANNITA AT [facility] AND INSURANCE HAS DENIED [facility]. I WILL CONTACT DAUGHTER TO SEE WHAT THEY WOULD LIKE TO DO. Vice President Of Sales: Graciela Caldera DCP- Discharge Planning Updated by [id number]: Graciela Caldera on 11/15/19 3:[address] Patient Name: MANNIE MILTON Admission Status: ER Accout number: [id number] Admission Date: 11-10-2019 : 1935 Admission Diagnosis:WEAKNESS Attending: MYRA CELAYA Current LOS: 5 Anticipated DC Date: Planned Disposition: Primary Insurance: [facility] MEDICARE SOLUTIONS Discharge Planning Comments: FAXED UPDATED CLINICALS TO [facility], THEY ARE SUBMITTING FOR AUTH TODAY. WAITING CALL BACK. SUSAN AND IMM SIGNED. Vice President Of Sales: Graciela Caldera Appended by Graciela Caldera on 11/15/2019 16:23 CDT: TRIED CALLING DAUGHTER TWICE, RECEIVED VOICEMAIL, LEFT A MESSAGE. DCP- Discharge Planning Updated by [email or web address]: Graciela Caldera on 11/12/19 9:[address] Patient Name: MANNIE MILTON Admission Status: ER Accout number: [id number] Admission Date: 11-10-2019 : 1935 Admission Diagnosis:WEAKNESS Attending: MYRA CELAYA Current LOS: 2 Anticipated DC Date: Planned Disposition: Primary Insurance: [facility] MEDICARE SOLUTIONS Discharge Planning Comments: FAXED REFERRAL TO [facility]. I WILL FAX OT EVAL WHEN DONE. CM TO FOLLOW AND ASSIST NEEDED. Vice President Of Sales: Graciela Caldera DCPIA - Discharge Planning Initial Assessment Updated by [id number]: Graciela Caldera on 11/15/19 9:09 am * Is the patient Alert and Oriented? Yes * Other Environment STATES LIVES AT A [facility] , CAN'T THINK OF NAME. * ADLs Independent * Other Equipment CANE , WALKER * Additional services required to return to the preadmission environment? Yes * Can the patient safely return to the preadmission environment? Yes * Has this patient been hospitalized within the prior 30 days at any hospital? No Coverage Notice Reviewer: [id number] Beckie Caldera Notice Issued Date-Time: 11/15/2019 9:06 Notice Type: IM Discharge Notice Notice Delivered To: Patient Relationship to Patient: Sub Acute Care Nurse Name: Delivery Method: HAND - Hand Delivered Saira Days: Prior Verbal Notification: Recipient Understood Notice: Yes Recipient Signature: Yes Med Rec Note Co-signed by Attending: Coverage Notice Comment: Reviewer: [id number] Caldera Notice Issued Date-Time: 11/15/2019 9:06 Notice Type: Patient Choice Letter Notice Delivered To: Patient Relationship to Patient: Sub Acute Care Nurse Name: Delivery Method: HAND - Hand Delivered Saira Days: Prior Verbal Notification: Recipient Understood Notice: Yes Recipient Signature: Yes Med Rec Note Co-signed by Attending: Coverage Notice Comment: [facility] Reviewer: [id number] Caldera Notice Issued Date-Time: 11/17/2019 14:42 Notice Type: Patient Choice Letter Notice Delivered To: Relationship to Patient: Sub Acute Care Nurse Name: DAUGHTER Delivery Method: PHONE - Phone Saira Days: Prior Verbal Notification: Yes Recipient Understood Notice: Recipient Signature: Med Rec Note Co-signed by Attending: Coverage Notice Comment: [facility] Last DP export: 11/19/19 9:28 a Patient Name: MANNIE MILTON Page [id number] at 0843 All edits/amendments must be made on the electronic document DICTATION DATE: 11/22/19 08 SINKER PULLER: CLEMENCIA 11/22/19 0843 RPT#: [id number] DC DATE:11/19/19 STATUS: [facility] [address] [place] [address] END OF REPORT
== END 2019-11-19 14:15 | DRG 683 ==
LOC: D.ER 14:36 → D.MS 18:38 → OBSVTIME 18:38 → D.MS 11-10 14:46
PROVIDERS: Family Medicine; ADMIT Family Medicine; ATTEND Family Medicine
DX: N17.9 Acute kidney failure, unspecified (principal); N39.0 Urinary tract infection, site not specified; E87.1 Hypo-osmolality and hyponatremia; R47.01 Aphasia; Z86.73 Personal history of transient ischemic attack (TIA), and cerebral infarction without residual deficits; I10 Essential (primary) hypertension; R00.1 Bradycardia, unspecified; F03.90 Unspecified dementia, unspecified severity, without behavioral disturbance, psychotic disturbance, mood disturbance, and anxiety; M19.90 Unspecified osteoarthritis, unspecified site